=== PATIENT | male | born 1995 | race Caucasian/White ===

== ENCOUNTER 2021-02-06 03:25 | Emergency (ER) | payer SELFPAY ==
[~2021-02-06] VITALS: Ht 165.1 cm; Wt 56.7 kg
[2021-02-06 03:25] VITALS: BP 124/74
--- NOTE | 2021-02-06 03:25 | NUR ---
PATIENT ESCORTED TO [facility] BY [facility] . EVELIOT AMBULATED WITH STEADY GAIT.
--- NOTE | 2021-02-06 03:38 | NUR ---
PATIENT BIB [place] [employer]. PATIENT EXAMINED BY DR. DEGROOT. PATIENT MEDICALLY CLEARED AND RELEASED IN CUSTODY IN STABLE CONDITION. ORIGINAL PRE-BOOK FORM GIVEN TO OFFICER MICHELLE #[id number].
[2021-02-06 03:43] VITALS: BP 124/74
--- NOTE | 2021-02-06 03:43 | NUR ---
Patient discharged with v/s stable. Written and verbal after care instructions given and explained. Patient verbalized understanding. Patient released in [place] [employer] custody. All questions addressed prior to discharge. Advised to follow up with PMD.
== END 2021-02-06 03:43 ==
LOC: MED 03:25
DX: F10.29 Alcohol dependence with unspecified alcohol-induced disorder (principal); Z02.89 Encounter for other administrative examinations; V98.8XXA Other specified transport accidents, initial encounter; Y93.89 Activity, other specified; Y92.89 Other specified places as the place of occurrence of the external cause; Y99.8 Other external cause status
CPT/HCPCS: 99283